=== PATIENT | female | born 1955 | race Caucasian/White ===

== ENCOUNTER 2025-01-29 07:55 | Day surgery (SDC) | payer MEDICARE, OTHER ==
[~2025-01-29] VITALS: Ht 160 cm; Wt 79.5 kg
[~2025-01-29 07:55] MED LIST: Lactated Ringer's 1,000 ML IV ONE; propofoL 50 ML IV ONE
[2025-01-29] MEDS ORDERED: PRAVASTATIN SOD40 MG (08:11)
[2025-01-29] MEDS ORDERED: TERB250 (08:12)
[2025-01-29] MEDS ORDERED: TIZA4 (08:12)
[2025-01-29] MEDS ORDERED: Lactated Ringer's 1,000 ML IV ONE (09:01)
== END 2025-01-29 10:28 | disposition home or self-care (01) ==
LOC: ORSCSDS 07:55
PROVIDERS: Internal Medicine Gastroenterology
PROC: 0DBM8ZX Excision of Descending Colon, Via Natural or Artificial Opening Endoscopic, Diagnostic (ICD-10-PCS; principal; 2025-01-29 09:15)
DX: Z12.11 Encounter for screening for malignant neoplasm of colon (principal); Z86.0101 Personal history of adenomatous and serrated colon polyps; Z80.0 Family history of malignant neoplasm of digestive organs; D12.4 Benign neoplasm of descending colon; K57.30 Diverticulosis of large intestine without perforation or abscess without bleeding; K63.89 Other specified diseases of intestine; G47.33 Obstructive sleep apnea (adult) (pediatric); Z79.899 Other long term (current) drug therapy
CPT/HCPCS: 88305; J2704; J7120

== ENCOUNTER → 2025-06-14 | Outpatient (CLI) | payer MEDICARE, OTHER ==
[~2025-06-14] MED LIST changes: -Lactated Ringer's 1,000 ML IV ONE; +PRAVASTATIN SOD40 MG; +TERB250; +TIZA4; -propofoL 50 ML IV ONE
== END | disposition home or self-care (01) ==
LOC: LAB 12:30 → LAB SHORT 12:30
DX: R30.0 Dysuria (principal)
CPT/HCPCS: 87086